=== PATIENT | female | born 1945 | race Caucasian/White ===

== ENCOUNTER 2020-03-02 14:48 | Emergency (ER) | payer OTHER ==
[~2020-03-02] VITALS: Ht 142.2 cm; Wt 66.7 kg
[2020-03-02 14:54] VITALS: Ht 142.2 cm; Wt 66.7 kg
[2020-03-02 16:34] VITALS: BP 125/64
== END 2020-03-02 16:34 | disposition home or self-care (01) ==
LOC: ED 14:48
DX: M19.90 Unspecified osteoarthritis, unspecified site (principal); I10 Essential (primary) hypertension; E78.00 Pure hypercholesterolemia, unspecified; K21.9 Gastro-esophageal reflux disease without esophagitis; Z88.0 Allergy status to penicillin; Z88.6 Allergy status to analgesic agent; Z98.890 Other specified postprocedural states
CPT/HCPCS: J1885; Q0092